=== PATIENT | male | born 1965 | race Caucasian/White ===

== ENCOUNTER 2023-06-06 21:00 | Outpatient (CLI) | payer OTHER, SELFPAY ==
[2023-06-06 20:20] LABS: Chloride 106 mmol/L (98-107); Sodium 139 mmol/L (136-145)
[2023-06-06 20:21] LABS: Potassium 4.4 mmoL/L (3.5-5.1)
[2023-06-06 20:23] LABS: Alanine Aminotransferase 34 U/L (12-78); Alkaline Phosphatase 119 U/L (38-126); Aspartate Amino Transferase 36 U/L (17-59); Bilirubin,Total 0.6 mg/dl (0.2-1.3); Blood Urea Nitrogen 17 mg/dl (9-20); Estimated Glomerular Filt Rate 69 ml/min (>60); GFR (African American) 83 ML/MIN (>60)
[2023-06-06 20:24] LABS: Albumin Level 4.2 g/dl (3.5-5.0); Albumin/Globulin Ratio 1.4 (1.1-1.8); Anion Gap 11.4 mEq/L (5-15); Calcium 9.2 mg/dl (8.4-10.2); Carbon Dioxide 26 mmol/L (22.0-30.0); Glucose 86 mg/dl (74-100); Total Protein,Serum 7.2 g/dl (6.3-8.2)
[2023-06-06 20:56] LABS: Prostate Specific Ag Screen 0.7 ng/ml (0.0-4.0)
== END 2023-06-06 23:59 ==
LOC: LAB.DROPOF 21:00
PROVIDERS: PCP Family Medicine; Visit Provider Family Medicine
DX: Z79.899 Other long term (current) drug therapy (principal); Z76.89 Persons encountering health services in other specified circumstances; Z12.5 Encounter for screening for malignant neoplasm of prostate
CPT/HCPCS: 80053; G0103

== ENCOUNTER 2023-09-26 10:10 | Outpatient (CLI) | payer OTHER, SELFPAY ==
[2023-09-26 18:33] LABS: Chol/HDL Ratio 3.1 (1-3.5); Cholesterol 125 mg/dl (140-200); HDL Cholesterol 40 mg/dl (40-60); Triglycerides 104 mg/dl (30-150); VLDL Cholesterol 21 mg/dL (0-40)
== END 2023-09-26 23:59 | disposition home or self-care (01) ==
LOC: LAB.DROPOF 09-28 10:12
PROVIDERS: PCP Family Medicine; Visit Provider Family Medicine
DX: L40.9 Psoriasis, unspecified (principal); I10 Essential (primary) hypertension; Z79.899 Other long term (current) drug therapy
CPT/HCPCS: 80061

== ENCOUNTER 2024-02-28 18:24 | Outpatient (CLI) | payer OTHER, SELFPAY | END 2024-02-28 23:59 | disposition home or self-care (01) | LOC: LAB.DROPOF 18:25 | PROVIDERS: PCP Nurse Practitioner Family; Visit Provider Nurse Practitioner Family | DX: R31.9 Hematuria, unspecified (principal) | CPT/HCPCS: 87086 ==